=== PATIENT | male | born 1980 | race Caucasian/White ===

== ENCOUNTER → 2018-02-20 | Outpatient (CLI) | payer OTHER ==
--- NOTE | 2018-02-20 13:36 | RAD ---
MR#: [id number] Date of Study: 02/20/2018 Ordering Physician: RONI BUSTAMANTE, Referring Physician: EVANGELISTA BUCKLEY Tech: Israel Bailey RT (R) (N) APPROVED REPORT Test Type: Exercise Stress Nurse/Tech: Richard Hernandez RN Test Indications: chest pain Cardiac History: HTN Medications: See Electronic Medical Record Medical History: See Electronic Medical Record Resting ECG: SR Resting Heart Rate: 89 bpm Resting Blood Pressure: 130/71mmHg Pretest Chest Pain: None Nurse/Tech Notes Lungs CTA, S1S2 Consent: The procedure was explained to the patient in lay terms. Informed consent was witnessed. Tesfaye eout was entered into [employer]. History and Stress Test performed by Richard Hernandez RN Stress Symptoms dyspnea POST EXERCISE Reason for Termination: Reached target heart rate Target HR: 153 Max HR: 169 bpm 94% of Maximum Predicted HR: 180 bpm Exercise duration: 6:00 min:sec, Stage Max Blood Pressure: 156/75mmHg Blood Pressure response to exercise: Normal blood pressure response during stress. Heart Rate response to exercise: normal response Chest Pain: No. Arrhythmia: No. ST Change: No. INTERPRETATION Stress EKG Conclusion: The resting EKG shows a sinus rhythm with nonspecific ST-T wave changes. With exertion the patient had mild further nonspecific ST-T wave changes that were not diagnostic of ischemia. No EKG evidence of stressed induced ischemia. Imaging Protocol IMAGE PROTOCOL: Rest Tc-99m/stress Tc-99m 1 day Rest: Stress: Viability: Radiopharm.Tc99m [id number] Sestamibi Dose11.8mCi 32mCi Duration 13min. 13min. Img Date 02/20/2018 02/20/2018 Inj-Img [id number]. 60min. Rest Admin Site:IV - Right AntecubitalAdministrator:VANCE Sánchez Stress Admin Site: IV - Right AntecubitalAdministrator: VANCE Sánchez STRESS DATA End Diast. Vol.78.0mlLVEDV index BSA39.0ml End Syst. Vol.19.0mlLVESV index BSA9.0ml Myocardial Ojmu986.0gEject. Wbpdqdmb58.0% Stress Scores Regional WT0.00Summed WT0.00 Regional WM0.00Summed WM5.00 LV Perfusion The stress scans showed no significant defects. The rest scans showed no significant defects. Nuclear imaging shows no reversible ischemia or infarct. Wall Motion Left ventricular systolic function is normal with an ejection fraction of greater than 70%. LV Perf. Quant 17 Seg. SSS0.00 17 Seg. SRS1.00 17 Seg. SDS0.00 Stress Defect Extent (% LAD)0.00Rest Defect Extent (% LAD)7.50Rev. Defect Extent (% LAD)0.00 Stress Defect Extent (% LCX) 0.00Rest Defect Extent (% LCX)0.00Rev. Defect Extent (% LCX)0.00 Stress Defect Extent (% RCA)0.00Rest Defect Extent (% RCA)0.00Rev. Defect Extent (% RCA)0.00 Stress Defect Extent (% MADELINE)0.00Rest Defect Extent (% MADELINE)2.60Rev. Defect Extent (% MADELINE)0.00 Conclusion 1. Fair exercise tolerance. 2. No chest pain with exertion. 3. No EKG evidence of stress-induced ischemia. 4. Nuclear imaging shows no reversible ischemia or infarct. 5. Normal left ventricular systolic function with an ejection fraction of greater than 70%. 6. Low risk treadmill nuclear stress test. Signed by : Roni Bustamante MD Electronically Approved : 02/20/2018 13:36:16
== END | disposition home or self-care (01) ==
LOC: NM 08:01
PROVIDERS: ATTEND Internal Medicine Cardiovascular Disease
DX: R07.9 Chest pain, unspecified (principal); I10 Essential (primary) hypertension
CPT/HCPCS: 78452; 93017; 96374; 96376; A9500